=== PATIENT | female | born 1945 | race Caucasian/White ===

== ENCOUNTER 2016-05-29 20:58 | Inpatient (IN) | payer OTHER ==
[~2016-05-29] VITALS: Ht 167.6 cm; Wt 71.5 kg
[~2016-05-29 20:58] MED LIST: ADVAIR 250/501 DISK IH; AGGRENOX1 CAPSULE PO; AMARYL1 MG PO; ARICEPT5 MG PO; ASPIR 8181 M1 PO; ASPIR 8181 MG PO; Aggrenox PO; Amaryl PO; CALCIUM 600 +1 EACH PO; CALCIUM500 M4; CATAPRES0.1 MG PO; CLONAZEPAM1 M1 PO; CLONAZEPAM1 MG PO; COMBIVENT RESPIM4 GM IH; COMBIVENT200 INHALA; CRESTOR10 MG PO; Calcium Carbonate,Ca PO; Catapres PO; DESYREL100 MG PO; Desyrel PO; ENDOCET 10-3251 EACH PO; FUROSEMIDE20 MG PO; GLIMEPIRIDE1 MG PO; HYDROCODON-ACE1 EAC7 PO; ISOSORBIDE DINI30 MG PO; JANUVIA25 M1 PO; KLONOPIN1 MG PO; KlonoPIN PO; LASIX10 MG PO; LASIX20 MG PO; LEVOFLOXACIN500 MG PO; LISINOPRIL20 MG PO; METOPROLOL SUCC25 MG PO; METOPROLOL SUCC50 MG PO; Motrin PO; NORVASC5 MG PO; PLAVIX75 MG PO; PREDNISONE20 MG PO; PRILOSEC OTC20 MG PO; PRINIVIL20 MG PO; PROAIR HFA8.5 GM IH; PROBIOTIC & AC1 EACH PO; PROTONIX40 MG PO; PULMICORT FLE180 MCG IH; Proventil,Ventolin H IH; RISPERDAL1 MG PO; SPIRIVA1 INHALATI IH; TIZANIDINE HCL4 M1 PO; TOPROL XL6.25 MG; TOPROL XL6.25 MG PO; TRAZODONE HCL50 MG PO; TUMS500 MG PO; TYLENOL REGULA325 MG PO; Toprol XL PO; VENTOLIN HFA18 GM IH; VITAMIN D-32000 UNIT PO; VITAMIN D31000 UNIT PO; VITAMIN D400 INTUNI PO; Vicodin,Norco 5/325 PO; Vitamin D PO; WELLBUTRIN75 MG PO; Wellbutrin PO; ZESTRIL20 MG; ZETIA10 MG PO; Zestril,Prinivil PO; Zetia PO
[2016-05-29 21:59] LABS: MCH 27.7 PG (29.0-34.0); MCHC 32.3 G/DL (30.0-36.0); MEAN PLAT.VOLUME 9.2 uM^3 (9.5-12.4); PLATELET COUNT 207 K/uL (156-360); RBC DIS.WIDTH-CV 12.9 % (11.8-14.6); RED BLOOD COUNT 4.65 M/uL (3.80-5.20)
[2016-05-29 22:07] LABS: CHLORIDE 97 mEq/L (99-109); POTASSIUM 3.8 mEq/L (3.7-5.4); SODIUM 140 mEq/L (136-147)
[2016-05-29 22:08] LABS: GLUCOSE 172 mg/dL (70-99)
[2016-05-29 22:10] LABS: ANION GAP 10 MEQ/L (2-14)
[2016-05-29 22:12] LABS: GFR ESTIMATE (CALCULATED) 40 mL/min/
[2016-05-29 22:13] LABS: UREA NITROGEN (BUN) 16 mg/dL (9-23)
[2016-05-29 22:18] LABS: TROP-I INTERPRETATION NEGATIVE; TROPONIN-I 0.12 ng/mL (0.0-0.30)
[2016-05-30 00:19] LABS: INTER. NORMALIZED RATIO 1.1; PROTHROMBIN TIME 10.9 (9.2-11.2); PTT 27.5 (25-32)
[2016-05-30 00:36] LABS: COMMENTS - BLOOD GASES C+; DEVICE NC; O2 FLOW 3 L/MIN; SITE LR; TOTAL RESP RATE 36 resp/min
[2016-05-30 00:37] LABS: PCO2 56 mm Hg (35-45); PO2 85 mm Hg (80-100)
[2016-05-30 00:38] LABS: BICARBONATE 34.7 mEq/L (22-26); CARBOXY HGB 4.4 % (0-5); O2 SATURATION (CALCULATED) 98.3 % (95-99)
[2016-05-30] MEDS ORDERED: CLONAZEPAM1 MG PO (01:10)
[2016-05-30] MEDS ORDERED: SPIRIVA1 INHALATI IH (01:16)
[2016-05-30] MEDS ORDERED: CALCIUM 600 +1 EAC2 PO (01:16)
[2016-05-30] MEDS ORDERED: PROVENTIL,2.5 MG/3 M IH (01:16)
[2016-05-30] MEDS ORDERED: LEVAQUIN500 MG PO (01:17)
[2016-05-30] MEDS ORDERED: MYCOSTATIN15 GM PO (01:17)
[2016-05-30 04:54] LABS: D-DIMER ELISA 0.95 mg/L FEU (< 0.57)
[2016-05-30 05:03] LABS: TROP-I INTERPRETATION NEGATIVE; TROPONIN-I 0.12 ng/mL (0.0-0.30)
[2016-05-30 08:23] LABS: POINT-OF-CARE METER ID UU13113702
[2016-05-30 11:14] LABS: TROP-I INTERPRETATION NEGATIVE; TROPONIN-I 0.08 ng/mL (0.0-0.30)
[2016-05-30 13:00] LABS: POINT-OF-CARE METER ID UU13113702
[2016-05-30 16:04] LABS: POINT-OF-CARE METER ID UU13113702
[2016-05-30 18:29] LABS: POINT-OF-CARE METER ID UU14149396
[2016-05-30 18:39] VITALS: BP 180/90
[2016-05-30 19:55] VITALS: BP 148/86
[2016-05-30 21:31] LABS: POINT-OF-CARE METER ID UU14149396
[2016-05-31 00:19] VITALS: BP 146/88
[2016-05-31 04:26] VITALS: BP 150/77
[2016-05-31 07:08] LABS: EOSINOPHIL (%) 0 % (0-5); IMMATURE GRANULOCYTE (%) 0.2 % (0.0-0.7); LYMPHOCYTE COUNT 0.6 K/uL (1.0-2.8); MCH 28.5 PG (29.0-34.0); MCHC 32.4 G/DL (30.0-36.0); MEAN PLAT.VOLUME 9.7 uM^3 (9.5-12.4); MONOCYTE (%) 3.5 % (3-12); MONOCYTE COUNT 0.2 K/uL (0-0.8); NEUTROPHIL (%) 85.7 % (45-76); NEUTROPHIL COUNT 5.1 K/uL (1.8-6.4); PLATELET COUNT 161 K/uL (156-360); RBC DIS.WIDTH-CV 12.9 % (11.8-14.6); RBC DIS.WIDTH-SD 41.6 % (39-53); RED BLOOD COUNT 4.32 M/uL (3.80-5.20)
[2016-05-31 07:25] LABS: ANION GAP 9 MEQ/L (2-14); CHLORIDE 96 MEQ/L (99-109); GFR ESTIMATE (CALCULATED) 58 mL/min/; GLUCOSE 293 mg/dL (70-99); POTASSIUM 3.9 MEQ/L (3.7-5.4); SAMPLE HEMOLYSIS CHECK 0; SAMPLE ICTERIC CHECK 0; SAMPLE LIPEMIA CHECK 0; SODIUM 139 MEQ/L (136-147); UREA NITROGEN (BUN) 12 mg/dL (9-23)
[2016-05-31 09:10] VITALS: BP 183/115
[2016-05-31 12:27] VITALS: BP 146/70
[2016-05-31 12:41] LABS: POINT-OF-CARE METER ID UU14149396; POINT-OF-CARE USER ID 606021404
[2016-05-31 16:00] VITALS: BP 197/84
[2016-05-31 19:01] LABS: POINT-OF-CARE METER ID UU13113807
[2016-05-31 20:30] VITALS: BP 163/77
[2016-05-31 22:00] LABS: POINT-OF-CARE METER ID UU13113807
[2016-06-01 00:08] VITALS: BP 133/69
[2016-06-01 04:24] VITALS: BP 152/67
[2016-06-01 08:00] VITALS: BP 136/81
[2016-06-01 08:42] LABS: POINT-OF-CARE METER ID UU13113807
[2016-06-01 11:42] LABS: POINT-OF-CARE METER ID UU13113807
[2016-06-01 11:50] VITALS: BP 157/75
[2016-06-01] MEDS ORDERED: METOPROLOL SUCC25 MG PO (15:12)
[2016-06-01] MEDS ORDERED: ROSUVASTATIN CA40 MG PO (15:14)
[2016-06-01] MEDS ORDERED: PREDNISONE10 MG PO (15:15)
[2016-06-01] MEDS ORDERED: LEVOFLOXACIN750 MG PO (15:15)
[2016-06-01 16:36] VITALS: BP 148/91
[2016-06-01 16:56] LABS: POINT-OF-CARE METER ID UU14149398
[2016-06-02 07:09] LABS: INTERNAL CONTROL VALID? YES
== END 2016-06-01 17:31 | disposition home health service (06) | DRG 190 ==
LOC: EME 20:58 → EDOF 05-30 01:53 → 4SOUTH 05-30 01:53
PROVIDERS: Emergency Medicine; Hospitalist; Internal Medicine
DX: J44.1 Chronic obstructive pulmonary disease with (acute) exacerbation (principal); J18.9 Pneumonia, unspecified organism; C78.7 Secondary malignant neoplasm of liver and intrahepatic bile duct; C79.51 Secondary malignant neoplasm of bone; E11.8 Type 2 diabetes mellitus with unspecified complications; Z99.81 Dependence on supplemental oxygen; C34.11 Malignant neoplasm of upper lobe, right bronchus or lung; F17.210 Nicotine dependence, cigarettes, uncomplicated; R06.89 Other abnormalities of breathing; F32.9 Major depressive disorder, single episode, unspecified; R91.8 Other nonspecific abnormal finding of lung field; I10 Essential (primary) hypertension; E78.5 Hyperlipidemia, unspecified; I73.9 Peripheral vascular disease, unspecified; F41.9 Anxiety disorder, unspecified; Z90.49 Acquired absence of other specified parts of digestive tract; K21.9 Gastro-esophageal reflux disease without esophagitis; Z95.1 Presence of aortocoronary bypass graft; Z95.5 Presence of coronary angioplasty implant and graft; Z90.2 Acquired absence of lung [part of]
CPT/HCPCS: 36600; 71020; 71250; 72146; 72148; 80048; 82803; 82948; 83880; 84484; 85025; 85027; 85379; 85610; 85730; 87040; 87070; 87205; 87449; 93005; 94640; 94640 76; 94799; 97530 GP; 99202; 99281; 99285; J1644; J1815; J1956; J2930; J7030

== ENCOUNTER 2016-06-02 14:18 | Emergency (ER) | payer OTHER ==
[~2016-06-02] VITALS: Ht 165.1 cm; Wt 69.7 kg
[~2016-06-02 14:18] MED LIST changes: +CALCIUM 600 +1 EAC2 PO; +LEVAQUIN500 MG PO; +LEVOFLOXACIN750 MG PO; +MYCOSTATIN15 GM PO; +PREDNISONE10 MG PO; +PROVENTIL,2.5 MG/3 M IH; +ROSUVASTATIN CA40 MG PO
[2016-06-02 15:34] LABS: VENOUS PCO2 73 mm Hg (41-51)
[2016-06-02 15:35] LABS: CARBON DIOXIDE (BICARBONATE) > 40.0 MEQ/L (20-31); HEMATOCRIT 44.1 % (36.0-46.0); MCHC 32.4 G/DL (30.0-36.0); MCV 86.5 FL (83-99); MEAN PLAT.VOLUME 9.1 uM^3 (9.5-12.4); PLATELET COUNT 190 K/uL (156-360); RBC DIS.WIDTH-CV 13.2 % (11.8-14.6); RBC DIS.WIDTH-SD 40.5 % (39-53); WHITE BLOOD COUNT 12.8 K/uL (4.1-10.2)
[2016-06-02 15:44] LABS: CHLORIDE 96 mEq/L (99-109); POTASSIUM 3.9 mEq/L (3.7-5.4); SODIUM 140 mEq/L (136-147)
[2016-06-02 15:46] LABS: GLUCOSE 181 mg/dL (70-99)
[2016-06-02 15:47] LABS: ANION GAP 9 MEQ/L (2-14)
[2016-06-02 15:48] LABS: TOTAL BILIRUBIN 0.4 mg/dL (0.0-1.0)
[2016-06-02 15:49] LABS: ALKALINE PHOSPHATASE 74 IU/L (3-129)
[2016-06-02 15:50] LABS: GFR ESTIMATE (CALCULATED) 52 mL/min/
[2016-06-02 15:56] LABS: UREA NITROGEN (BUN) 24 mg/dL (9-23)
[2016-06-02 16:17] LABS: ADD MIUA? YES; BILIRUBIN NEGATIVE; BLOOD SMALL; COLOR STRAW ((YELLOW)); GLUCOSE (STRIP) NEGATIVE; KETONES NEGATIVE; LEUKOCYTES NEGATIVE; NITRITE NEGATIVE; PROTEIN (STRIP) NEGATIVE; SPECIFIC GRAVITY 1.006 (1.000-1.030); UROBILINOGEN 0.2 MG/DL (0.2-1.0)
[2016-06-02 16:23] LABS: BACTERIA RARE /HPF; EPITHELIAL CELLS RARE /HPF; MUCUS NONE SEEN /LPF; RED BLOOD CELLS 0-5 /HPF (0-5); WHITE BLOOD CELLS 0-5 /HPF (0-5)
[2016-06-02 16:47] LABS: TROP-I INTERPRETATION NEGATIVE; TROPONIN-I 0.08 ng/mL (0.0-0.30)
[2016-06-02 18:12] VITALS: BP 179/89
== END 2016-06-02 18:19 | disposition home or self-care (01) ==
LOC: EME 14:18
PROVIDERS: Nurse Practitioner Family
DX: J44.1 Chronic obstructive pulmonary disease with (acute) exacerbation (principal); C34.90 Malignant neoplasm of unspecified part of unspecified bronchus or lung; I10 Essential (primary) hypertension; E11.9 Type 2 diabetes mellitus without complications; F17.200 Nicotine dependence, unspecified, uncomplicated; E78.5 Hyperlipidemia, unspecified; I25.2 Old myocardial infarction; Z99.81 Dependence on supplemental oxygen; Z86.73 Personal history of transient ischemic attack (TIA), and cerebral infarction without residual deficits; Z95.5 Presence of coronary angioplasty implant and graft; Z88.2 Allergy status to sulfonamides; Z88.0 Allergy status to penicillin; Z88.1 Allergy status to other antibiotic agents
CPT/HCPCS: 71020; 80053; 81003; 82803; 83605; 84484; 85027; 87040; 93005; 94640; 94640 76; 99281; 99285; J1885; J7512

== ENCOUNTER 2016-06-19 10:14 | Inpatient (IN) | payer OTHER ==
[~2016-06-19] VITALS: Ht 165.1 cm; Wt 71.4 kg
[2016-06-19 11:18] LABS: HEMATOCRIT 39.5 % (36.0-46.0); MCH 27.6 PG (29.0-34.0); MCHC 31.4 G/DL (30.0-36.0); MCV 87.8 FL (83-99); MEAN PLAT.VOLUME 9.6 uM^3 (9.5-12.4); PLATELET COUNT 156 K/uL (156-360); RBC DIS.WIDTH-CV 12.7 % (11.8-14.6); RBC DIS.WIDTH-SD 40.9 % (39-53)
[2016-06-19 11:22] LABS: WHITE BLOOD COUNT 8.2 K/uL (4.1-10.2)
[2016-06-19 11:33] LABS: CHLORIDE 96 mEq/L (99-109); POTASSIUM 3.6 mEq/L (3.7-5.4); SODIUM 139 mEq/L (136-147)
[2016-06-19 11:35] LABS: PROTHROMBIN TIME 10.1 (9.2-11.2); PTT 21.7 (25-32)
[2016-06-19 11:36] LABS: GLUCOSE 174 mg/dL (70-99)
[2016-06-19 11:37] LABS: ANION GAP 10 MEQ/L (2-14); TOTAL BILIRUBIN 0.6 mg/dL (0.0-1.0)
[2016-06-19 11:39] LABS: ALKALINE PHOSPHATASE 64 IU/L (3-129); GFR ESTIMATE (CALCULATED) 40 mL/min/
[2016-06-19 11:40] LABS: UREA NITROGEN (BUN) 15 mg/dL (9-23)
[2016-06-19 11:41] LABS: DIRECT BILIRUBIN 0.3 mg/dL (0.0-0.3)
[2016-06-19 12:04] LABS: TROP-I INTERPRETATION POSITIVE; TROPONIN-I 1.71 ng/mL (0.0-0.30)
[2016-06-19 13:37] LABS: TROP-I INTERPRETATION POSITIVE
[2016-06-19] MEDS ORDERED: CRESTOR40 MG PO (14:26)
[2016-06-19] MEDS ORDERED: LISINOPRIL5 MG PO (14:27)
[2016-06-19] MEDS ORDERED: METOPROLOL SUCC25 MG PO (14:27)
[2016-06-19] MEDS ORDERED: CALCIUM-MAGNES1 EA10 PO (14:28)
[2016-06-19] MEDS ORDERED: PREDNISONE10 MG PO (14:29)
[2016-06-19] MEDS ORDERED: ADVAIR 250/501 DISK IH (14:30)
[2016-06-19] MEDS ORDERED: ZOLPIDEM TARTRAT5 MG PO (14:30)
[2016-06-19 15:41] VITALS: BP 137/71
[2016-06-19 16:14] LABS: POINT-OF-CARE METER ID UU13113698
[2016-06-19 19:00] LABS: INTER. NORMALIZED RATIO 1.1
[2016-06-19 19:03] LABS: PTT 88.5 (25-32)
[2016-06-19 19:22] LABS: TROP-I INTERPRETATION POSITIVE; TROPONIN-I 2.01 ng/mL (0.0-0.30)
[2016-06-19 20:00] VITALS: BP 132/65
[2016-06-19 22:29] VITALS: BP 138/82
[2016-06-19 22:45] VITALS: BP 162/71
[2016-06-20 02:42] LABS: TROP-I INTERPRETATION POSITIVE; TROPONIN-I 2.17 ng/mL (0.0-0.30)
[2016-06-20 04:00] VITALS: BP 107/62
[2016-06-20 07:00] LABS: HEMATOCRIT 34.3 % (36.0-46.0); MCH 28.2 PG (29.0-34.0); MCHC 31.5 G/DL (30.0-36.0); MCV 89.6 FL (83-99); MEAN PLAT.VOLUME 9.9 uM^3 (9.5-12.4); PLATELET COUNT 150 K/uL (156-360); RBC DIS.WIDTH-SD 42.2 % (39-53); RED BLOOD COUNT 3.83 M/uL (3.80-5.20); WHITE BLOOD COUNT 6.7 K/uL (4.1-10.2)
[2016-06-20 08:00] LABS: POINT-OF-CARE METER ID UU13113781
[2016-06-20 08:24] LABS: ALKALINE PHOSPHATASE 61 IU/L (3-129); ANION GAP 6 MEQ/L (2-14); CHLORIDE 99 MEQ/L (99-109); GFR ESTIMATE (CALCULATED) 43 mL/min/; POTASSIUM 3.4 MEQ/L (3.7-5.4); SAMPLE HEMOLYSIS CHECK 0; SAMPLE ICTERIC CHECK 0; SAMPLE LIPEMIA CHECK 0; SODIUM 143 MEQ/L (136-147); TOTAL BILIRUBIN 0.5 MG/DL (0.0-1.0); UREA NITROGEN (BUN) 13 mg/dL (9-23)
[2016-06-20 08:32] LABS: GLUCOSE 74 mg/dL (70-99)
[2016-06-20 11:24] LABS: POINT-OF-CARE METER ID UU13113781
[2016-06-20 16:22] LABS: POINT-OF-CARE METER ID UU13113819
[2016-06-20 18:00] VITALS: BP 136/65
[2016-06-20 20:00] VITALS: BP 159/75
[2016-06-20 23:55] VITALS: BP 94/53
[2016-06-21 04:00] VITALS: BP 108/57
[2016-06-21 06:12] LABS: POINT-OF-CARE METER ID UU13113781
[2016-06-21 07:07] LABS: EOSINOPHIL (%) 2.4 % (0-5); EOSINOPHIL COUNT 0.1 K/uL (0-0.3); HEMATOCRIT 33.3 % (36.0-46.0); IMMATURE GRANULOCYTE (%) 0.3 % (0.0-0.7); INSTRUMENT ABS NEUTROPHIL CT 4.2 K/uL; LYMPHOCYTE COUNT 0.9 K/uL (1.0-2.8); MCH 28.1 PG (29.0-34.0); MCHC 30.9 G/DL (30.0-36.0); MONOCYTE (%) 7.5 % (3-12); MONOCYTE COUNT 0.4 K/uL (0-0.8); NEUTROPHIL (%) 73.3 % (45-76); NEUTROPHIL COUNT 4.2 K/uL (1.8-6.4); PLATELET COUNT 141 K/uL (156-360); RBC DIS.WIDTH-CV 13.4 % (11.8-14.6); RBC DIS.WIDTH-SD 44.6 % (39-53); RED BLOOD COUNT 3.66 M/uL (3.80-5.20); WHITE BLOOD COUNT 5.8 K/uL (4.1-10.2)
[2016-06-21 07:33] LABS: ANION GAP 7 MEQ/L (2-14); CHLORIDE 97 MEQ/L (99-109); GFR ESTIMATE (CALCULATED) 52 mL/min/; POTASSIUM 3.5 MEQ/L (3.7-5.4); SAMPLE HEMOLYSIS CHECK 0; SAMPLE ICTERIC CHECK 0; SAMPLE LIPEMIA CHECK 0; SODIUM 138 MEQ/L (136-147); UREA NITROGEN (BUN) 11 mg/dL (9-23)
[2016-06-21 07:36] LABS: GLUCOSE 162 mg/dL (70-99)
[2016-06-21 08:41] VITALS: BP 100/54
[2016-06-21 11:36] VITALS: BP 104/55
[2016-06-21 15:53] VITALS: BP 113/55
[2016-06-21 17:01] LABS: POINT-OF-CARE METER ID UU14174216; POINT-OF-CARE USER ID ENVKC36
[2016-06-21 19:41] VITALS: BP 158/68
[2016-06-21 23:00] VITALS: BP 129/66
[2016-06-22 04:04] VITALS: BP 124/68
[2016-06-22 08:12] VITALS: BP 109/62
[2016-06-22 08:28] LABS: POINT-OF-CARE USER ID NUTSLF44
[2016-06-22 10:28] LABS: EOSINOPHIL COUNT 0.2 K/uL (0-0.3); HEMATOCRIT 36.5 % (36.0-46.0); IMMATURE GRANULOCYTE (%) 0.3 % (0.0-0.7); INSTRUMENT ABS NEUTROPHIL CT 4.3 K/uL; LYMPHOCYTE COUNT 1.2 K/uL (1.0-2.8); MCH 28.1 PG (29.0-34.0); MCV 90.8 FL (83-99); MEAN PLAT.VOLUME 9.5 uM^3 (9.5-12.4); MONOCYTE (%) 8.8 % (3-12); MONOCYTE COUNT 0.6 K/uL (0-0.8); NEUTROPHIL (%) 68.3 % (45-76); NEUTROPHIL COUNT 4.3 K/uL (1.8-6.4); PLATELET COUNT 151 K/uL (156-360); RBC DIS.WIDTH-CV 13.3 % (11.8-14.6); RBC DIS.WIDTH-SD 44.3 % (39-53); RED BLOOD COUNT 4.02 M/uL (3.80-5.20); WHITE BLOOD COUNT 6.3 K/uL (4.1-10.2)
[2016-06-22 11:05] LABS: ANION GAP 7 MEQ/L (2-14); CHLORIDE 98 MEQ/L (99-109); GFR ESTIMATE (CALCULATED) 43 mL/min/; GLUCOSE 194 mg/dL (70-99); MAGNESIUM 1.8 mg/dl (1.3-2.7); POTASSIUM 4.1 MEQ/L (3.7-5.4); SAMPLE HEMOLYSIS CHECK 0; SAMPLE ICTERIC CHECK 0; SAMPLE LIPEMIA CHECK 0; SODIUM 141 MEQ/L (136-147); UREA NITROGEN (BUN) 11 mg/dL (9-23)
[2016-06-22 11:40] VITALS: BP 107/60
[2016-06-22 12:06] LABS: POINT-OF-CARE METER ID UU13113698; POINT-OF-CARE USER ID NUTSLF44
[2016-06-22] MEDS ORDERED: SPIRIVA RESPIMAT4 GM IH (12:18)
[2016-06-22] MEDS ORDERED: IMDUR30 MG PO (12:18)
[2016-06-22] MEDS ORDERED: CLOPIDOGREL75 MG PO (12:18)
== END 2016-06-22 14:34 | disposition home health service (06) | DRG 280 ==
LOC: EME 10:14 → EDOF 13:59 → 4EAST 13:59 → EDOF 14:11 → 4EAST 15:13
PROVIDERS: Hospitalist; Internal Medicine; Nurse Practitioner Family; Student in an Organized Health Care Education/Training Program
DX: I21.4 Non-ST elevation (NSTEMI) myocardial infarction (principal); J96.21 Acute and chronic respiratory failure with hypoxia; I25.82 Chronic total occlusion of coronary artery; J44.9 Chronic obstructive pulmonary disease, unspecified; I27.2 Other secondary pulmonary hypertension; C34.91 Malignant neoplasm of unspecified part of right bronchus or lung; I25.810 Atherosclerosis of coronary artery bypass graft(s) without angina pectoris; Z95.5 Presence of coronary angioplasty implant and graft; I11.0 Hypertensive heart disease with heart failure; E11.9 Type 2 diabetes mellitus without complications; K21.9 Gastro-esophageal reflux disease without esophagitis; E78.5 Hyperlipidemia, unspecified; K59.00 Constipation, unspecified; Z79.4 Long term (current) use of insulin; F41.9 Anxiety disorder, unspecified; F32.9 Major depressive disorder, single episode, unspecified; Z99.81 Dependence on supplemental oxygen; Z87.891 Personal history of nicotine dependence; Z86.73 Personal history of transient ischemic attack (TIA), and cerebral infarction without residual deficits; I73.9 Peripheral vascular disease, unspecified; I25.5 Ischemic cardiomyopathy; I25.10 Atherosclerotic heart disease of native coronary artery without angina pectoris; I50.9 Heart failure, unspecified
CPT/HCPCS: 71020; 71275; 80048; 80053; 80076; 82948; 83735; 83880; 84484; 85025; 85027; 85347; 85610; 85730; 92523 GN; 93005; 93306; 94640; 94640 76; 94799; 97532 GN; 99202; 99281; 99285; C1769; C1887; C1894; J1644; J1815; J2250; J2270; J3010; J7040

== ENCOUNTER 2016-07-10 18:58 | Inpatient (IN) | payer OTHER ==
[~2016-07-10] VITALS: Ht 165.1 cm; Wt 69.7 kg
[~2016-07-10 18:58] MED LIST changes: +CALCIUM-MAGNES1 EA10 PO; +CLOPIDOGREL75 MG PO; +CRESTOR40 MG PO; +IMDUR30 MG PO; +LISINOPRIL5 MG PO; +SPIRIVA RESPIMAT4 GM IH; +ZOLPIDEM TARTRAT5 MG PO
[2016-07-10 19:38] LABS: HEMATOCRIT 35.2 % (36.0-46.0); MCH 28.3 PG (29.0-34.0); MCHC 31.3 G/DL (30.0-36.0); MCV 90.5 FL (83-99); MEAN PLAT.VOLUME 9.4 uM^3 (9.5-12.4); PLATELET COUNT 209 K/uL (156-360); RBC DIS.WIDTH-CV 13.9 % (11.8-14.6); RBC DIS.WIDTH-SD 45.9 % (39-53); RED BLOOD COUNT 3.89 M/uL (3.80-5.20); WHITE BLOOD COUNT 9.3 K/uL (4.1-10.2)
[2016-07-10 19:46] LABS: CHLORIDE 90 mEq/L (99-109); POTASSIUM 4.1 mEq/L (3.7-5.4); SODIUM 133 mEq/L (136-147)
[2016-07-10 19:47] LABS: GLUCOSE 279 mg/dL (70-99)
[2016-07-10 19:49] LABS: ANION GAP 11 MEQ/L (2-14)
[2016-07-10 19:51] LABS: GFR ESTIMATE (CALCULATED) 43 mL/min/
[2016-07-10 19:52] LABS: UREA NITROGEN (BUN) 18 mg/dL (9-23)
[2016-07-10 19:57] LABS: TROP-I INTERPRETATION NEGATIVE; TROPONIN-I 0.09 ng/mL (0.0-0.30)
[2016-07-10 20:16] LABS: D-DIMER ELISA 1.12 mg/L FEU (< 0.57)
[2016-07-10] MEDS ORDERED: TRAZODONE HCL50 MG PO (20:41)
[2016-07-10] MEDS ORDERED: DILTIAZEM 24HR120 MG PO (20:42)
[2016-07-10] MEDS ORDERED: DUONEB 2.5-0.5 M3 ML AEROSOL (20:47)
[2016-07-10] MEDS ORDERED: ISOSORBIDE MONO30 MG PO (20:52)
[2016-07-10] MEDS ORDERED: PLAVIX75 MG PO (20:52)
[2016-07-10] MEDS ORDERED: TYLENOL EXTRA500 MG PO (20:53)
[2016-07-10 22:09] LABS: POINT-OF-CARE METER ID UU14100415
[2016-07-10 22:46] VITALS: BP 112/70
[2016-07-11 06:44] LABS: POINT-OF-CARE METER ID UU14162508
[2016-07-11 07:20] VITALS: BP 128/55
[2016-07-11 08:06] LABS: EOSINOPHIL (%) 0 % (0-5); HEMATOCRIT 33.1 % (36.0-46.0); IMMATURE GRANULOCYTE (%) 0.6 % (0.0-0.7); IMMATURE GRANULOCYTE COUNT 0.1 K/uL; INSTRUMENT ABS NEUTROPHIL CT 7.2 K/uL; LYMPHOCYTE COUNT 0.9 K/uL (1.0-2.8); MCH 28.5 PG (29.0-34.0); MCHC 30.8 G/DL (30.0-36.0); MCV 92.5 FL (83-99); MEAN PLAT.VOLUME 9.6 uM^3 (9.5-12.4); MONOCYTE (%) 8.1 % (3-12); MONOCYTE COUNT 0.7 K/uL (0-0.8); NEUTROPHIL (%) 81.4 % (45-76); NEUTROPHIL COUNT 7.2 K/uL (1.8-6.4); PLATELET COUNT 191 K/uL (156-360); RBC DIS.WIDTH-CV 14.3 % (11.8-14.6); RBC DIS.WIDTH-SD 47.8 % (39-53); RED BLOOD COUNT 3.58 M/uL (3.80-5.20); WHITE BLOOD COUNT 8.9 K/uL (4.1-10.2)
[2016-07-11 08:28] LABS: ALKALINE PHOSPHATASE 61 IU/L (3-129); ANION GAP 5 MEQ/L (2-14); CHLORIDE 90 MEQ/L (99-109); GFR ESTIMATE (CALCULATED) 47 mL/min/; GLUCOSE 155 mg/dL (70-99); POTASSIUM 4.6 MEQ/L (3.7-5.4); SAMPLE HEMOLYSIS CHECK 0; SAMPLE ICTERIC CHECK 0; SAMPLE LIPEMIA CHECK 0; SODIUM 133 MEQ/L (136-147); TOTAL BILIRUBIN 0.3 MG/DL (0.0-1.0); UREA NITROGEN (BUN) 18 mg/dL (9-23)
[2016-07-11 08:44] LABS: Estimated Average Glucose 163 mg/dL (70-123); HEMOGLOBIN A1c (GLYCOHEMOGLOB) 7.3 % HGB (Below 5.7)
[2016-07-11 11:20] VITALS: BP 103/73
[2016-07-11 12:32] LABS: POINT-OF-CARE METER ID UU14162508
[2016-07-11 15:35] VITALS: BP 100/58
[2016-07-11 16:33] LABS: POINT-OF-CARE METER ID UU14162508
[2016-07-11 20:48] VITALS: BP 101/62
[2016-07-11 21:28] VITALS: BP 90/44
[2016-07-11 21:31] LABS: POINT-OF-CARE METER ID UU14162508
[2016-07-11 22:28] LABS: EOSINOPHIL (%) 0.1 % (0-5); HEMATOCRIT 32.6 % (36.0-46.0); IMMATURE GRANULOCYTE (%) 0.7 % (0.0-0.7); IMMATURE GRANULOCYTE COUNT 0.1 K/uL; INSTRUMENT ABS NEUTROPHIL CT 7.6 K/uL; MCH 28.3 PG (29.0-34.0); MCHC 30.4 G/DL (30.0-36.0); MCV 93.1 FL (83-99); MEAN PLAT.VOLUME 9.4 uM^3 (9.5-12.4); MONOCYTE (%) 8.7 % (3-12); MONOCYTE COUNT 0.8 K/uL (0-0.8); NEUTROPHIL (%) 79.5 % (45-76); NEUTROPHIL COUNT 7.6 K/uL (1.8-6.4); PLATELET COUNT 184 K/uL (156-360); RBC DIS.WIDTH-CV 14.4 % (11.8-14.6); RBC DIS.WIDTH-SD 48.1 % (39-53); WHITE BLOOD COUNT 9.6 K/uL (4.1-10.2)
[2016-07-11 22:38] LABS: ANION GAP 5 MEQ/L (2-14); CHLORIDE 90 MEQ/L (99-109); POTASSIUM 4.7 MEQ/L (3.7-5.4); SAMPLE HEMOLYSIS CHECK 0; SAMPLE ICTERIC CHECK 0; SAMPLE LIPEMIA CHECK 0; SODIUM 132 MEQ/L (136-147); TOTAL BILIRUBIN 0.3 MG/DL (0.0-1.0)
[2016-07-11 22:43] LABS: ALKALINE PHOSPHATASE 63 IU/L (3-129); GFR ESTIMATE (CALCULATED) 40 mL/min/; GLUCOSE 195 mg/dL (70-99); UREA NITROGEN (BUN) 22 mg/dL (9-23)
[2016-07-12] VITALS (7 sets, daily range): BP systolic 62–109; BP diastolic 40–61
[2016-07-12 06:59] LABS: POINT-OF-CARE METER ID UU14162508
[2016-07-12 07:18] LABS: EOSINOPHIL (%) 0 % (0-5); HEMATOCRIT 37.5 % (36.0-46.0); IMMATURE GRANULOCYTE (%) 0.6 % (0.0-0.7); IMMATURE GRANULOCYTE COUNT 0.1 K/uL; INSTRUMENT ABS NEUTROPHIL CT 8.8 K/uL; LYMPHOCYTE COUNT 0.7 K/uL (1.0-2.8); MCH 28.4 PG (29.0-34.0); MCHC 30.1 G/DL (30.0-36.0); MCV 94.2 FL (83-99); MEAN PLAT.VOLUME 9.2 uM^3 (9.5-12.4); MONOCYTE (%) 5.5 % (3-12); MONOCYTE COUNT 0.6 K/uL (0-0.8); NEUTROPHIL (%) 86.9 % (45-76); NEUTROPHIL COUNT 8.8 K/uL (1.8-6.4); PLATELET COUNT 234 K/uL (156-360); RBC DIS.WIDTH-CV 14.3 % (11.8-14.6); RBC DIS.WIDTH-SD 48.2 % (39-53); RED BLOOD COUNT 3.98 M/uL (3.80-5.20); WHITE BLOOD COUNT 10.1 K/uL (4.1-10.2)
[2016-07-12 07:33] LABS: PROTHROMBIN TIME 10.6 (9.2-11.2)
[2016-07-12 07:37] LABS: PTT 25.2 (25-32)
[2016-07-12 07:51] LABS: ANION GAP 5 MEQ/L (2-14); CHLORIDE 90 MEQ/L (99-109); GLUCOSE 226 mg/dL (70-99); SAMPLE HEMOLYSIS CHECK 0; SAMPLE ICTERIC CHECK 0; SAMPLE LIPEMIA CHECK 0; SODIUM 132 MEQ/L (136-147); UREA NITROGEN (BUN) 30 mg/dL (9-23)
[2016-07-12 07:52] LABS: ALKALINE PHOSPHATASE 113 IU/L (3-129); GFR ESTIMATE (CALCULATED) 26 mL/min/; TOTAL BILIRUBIN 0.4 MG/DL (0.0-1.0)
[2016-07-12 09:05] LABS: METH RESISTANT S AUREUS PCR NEGATIVE (NEGATIVE)
[2016-07-12 09:07] LABS: PROBE CHECK PASS; SPECIMEN PROCESSING CONTROL PASS
== END 2016-07-12 10:07 | DRG 189 ==
LOC: EME 18:58 → EDOF 21:06 → 4WEST 21:06 → 2EAST 22:36 → 4WEST 07-12 07:13
PROVIDERS: Emergency Medicine; Hospitalist; Internal Medicine; Internal Medicine Critical Care Medicine
DX: J96.21 Acute and chronic respiratory failure with hypoxia (principal); I21.4 Non-ST elevation (NSTEMI) myocardial infarction; R57.9 Shock, unspecified; J18.9 Pneumonia, unspecified organism; C34.90 Malignant neoplasm of unspecified part of unspecified bronchus or lung; E11.22 Type 2 diabetes mellitus with diabetic chronic kidney disease; C79.9 Secondary malignant neoplasm of unspecified site; N18.3 Chronic kidney disease, stage 3 (moderate); J44.0 Chronic obstructive pulmonary disease with (acute) lower respiratory infection; Y95 Nosocomial condition; J44.1 Chronic obstructive pulmonary disease with (acute) exacerbation; I12.9 Hypertensive chronic kidney disease with stage 1 through stage 4 chronic kidney disease, or unspecified chronic kidney disease; E87.1 Hypo-osmolality and hyponatremia; Z66 Do not resuscitate; Z51.5 Encounter for palliative care; I25.10 Atherosclerotic heart disease of native coronary artery without angina pectoris; Z95.5 Presence of coronary angioplasty implant and graft; Z95.1 Presence of aortocoronary bypass graft; K21.9 Gastro-esophageal reflux disease without esophagitis; R41.82 Altered mental status, unspecified; Z87.891 Personal history of nicotine dependence
CPT/HCPCS: 36600; 71010; 71020; 80048; 80048 91; 80053; 82803; 82948; 83036; 83605; 83880; 84484; 85025; 85025 91; 85027; 85379; 85610; 85730; 87040; 87070; 87205; 87449; 87641; 93005; 94640; 94640 76; 94799; 99202; 99281; 99285; J0456; J1200; J1644; J1815; J1956; J3370; J7050